=== PATIENT | male | born 1965 | race Hispanic/Latino ===

== ENCOUNTER 2024-03-22 17:23 | Emergency (ER) | payer BC ==
[~2024-03-22] VITALS: Ht 167.6 cm; Wt 64.9 kg
[~2024-03-22 17:23] MED LIST: ASPI-1443 PO; ATOR10 PO; ATRO2DRO7 OP; CIPR2.5D18 OS; CIPR7.5D7 OTIC; DOCU100C33 PO; EMPA10TA PO; FAMO20TA8 PO; INSU100V3 IJ; INSU3INS3 SQ; LACT10SO9 PO; LISI10TA24 PO; LOVA20TA3 PO; MAGN400T7 PO; METF-446 PO; NITR0.4T SL; PRED5DRO25 OP
--- NOTE | 2024-03-22 17:37 | EKG ---
[facility] Test Date: 2024-03-22 Test Time: 17:34:33 Pat Name: BUBBA LEMUS Department: ED Room: Gender: M Insurance Analyst: [id number] : 1965 Requested By: MK PENN Order Number: [id number] Reading MD: Hiren Briceño Measurements Intervals [place] Rate: 78 P: 21 MN: 148 QRS: -7 QRSD: 89 T: 38 QT: 399 QTc: 454 Interpretive Statements Sinus rhythm No previous ECG available for comparison Electronically Signed On 03-22-2024 20:19:34 BACTERIOLOGY RESEARCH ASSISTANT by Hiren Briceño Please click the below link to view image of tracing.
[2024-03-22 18:03] LABS: BASOPHILS # (AUTO) 0.01 K/uL (0.00-0.20); BASOPHILS % (AUTO) 0.2 % (0.0-5.0); HEMATOCRIT 22.7 % (42-54); IMMATURE GRANULOCYTE ABSOLUTE 0.07 K/uL (0-1); LYMPHOCYTES # (AUTO) 1.4 K/uL (1.0-4.8); LYMPHOCYTES % (AUTO) 27.1 % (21.0-51.0); MEAN CORPUSCULAR HEMOGLOBIN 29.4 pg (27.0-33.0); MEAN CORPUSCULAR HGB CONC 31.7 g/dL (32.0-36.0); MEAN CORPUSCULAR VOLUME 92.7 fL (79-99); MONOCYTES # (AUTO) 0.3 K/uL (0.1-1.0); MONOCYTES % (AUTO) 6.8 % (3.0-13.0); NEUTROPHILS # (AUTO) 3.1 K/uL (1.8-7.7); NEUTROPHILS % (AUTO) 62.5 % (40.0-77.0); PLATELET COUNT (AUTO) 354 K/uL (130-400); RED BLOOD CELL COUNT(AUTO) 2.45 MIL/uL (4.50-6.20); RED CELL DISTRIBUTION WIDTH 19.8 % (11.0-15.5)
[2024-03-22 18:12] LABS: CREATININE 0.7 mg/dL (0.5-1.3); POTASSIUM 3.8 mmol/L (3.5-5.1)
[2024-03-22 18:14] LABS: INR 0.95 (0.85-1.15); PROTHROMBIN TIME 10.7 SEC (9.6-11.6)
[2024-03-22 18:15] LABS: PARTIAL THROMBOPLASTIN TIME 28.6 SEC (26.3-35.5)
--- NOTE | 2024-03-22 19:17 | ERN ---
General Chief Complaint: Abnormal Labs Stated Complaint: LOW HGB 6.4 Time Seen by MD: 17:25 Time Seen by Midlevel: 17:25 Source: patient History of Present Illness Initial Comments Patient is a 58-year-old male with a past medical history of diabetes, osteomyelitis of the right foot, and chronic anemia presenting to the emergency department for evaluation of abnormal labs. Patient was seen by his primary care doctor earlier today for a routine follow up and was advised to report to the ER after he was found to have hemoglobin of 6.4. His labs had been drawn bag on March 10, 2024 and patient barely got the results today. On arrival patient is specifically denies any hematemesis, hematochezia, bright red stools, or any other symptoms at this time. Allergies: Coded Allergies: No Known Drug Allergies (Unverified Allergy, Unknown, 12/09/23) Home Meds Reported Medications Ciprofloxacin HCl (Ciprofloxacin HCl) 0.3 % Drops, 1 DROP OS Q12H, #5 ML 0 Refills 01/24/24 Ciprofloxacin HCl/Dexameth (Ciproflox-Dexameth Otic Susp) 0.3 %-0.1 % Drops.jamison sp, 1 DROP OTIC Q12H for 7 Days, #7.5 ML 0 Refills 01/23/24 Nitroglycerin (Nitrostat) 0.4 Mg Tab.subl, 0.4 MG SL AD PRN for CHEST PAIN, TAB.SL 01/23/24 Insulin Regular, Human (Humulin R) 100 Unit/Ml Vial, 0 IJ ACHS, VIAL 01/23/24 Lisinopril (Lisinopril) 10 Mg Tablet, 1 TAB PO DAILY for 30 Days, #30 TAB 0 Refills 01/23/24 Aspirin (Aspirin EC) 81 Mg Tablet.dr, 1 TAB PO DAILY for 30 Days, #30 TAB 0 Refills 01/23/24 Famotidine (Famotidine) 20 Mg Tablet, 1 TAB PO BID for 30 Days, #60 TAB 0 Refills 01/23/24 Insulin Glargine,Hum.rec.anlog (Lantus Solostar) 100 Unit/Ml (3 Ml) Insuln.pen, 25 UNIT SQ DAILY for 30 Days, ML 0 Refills 01/23/24 Magnesium Oxide (Mag-Ox) 400 Mg Tab, 1 TAB PO BID for 30 Days, #30 TAB 0 Refills 01/23/24 Atorvastatin Calcium (LIPITOR) 10 Mg Tab, 0.5 TAB PO HS for 30 Days, #30 TAB 0 Refills 01/23/24 Docusate Sodium (Docusate Sodium) 100 Mg Capsule, 1 CAP PO BID for constipation for 7 Days, #14 CAP 0 Refills 01/23/24 Lactulose (Lactulose) 20 Gram/30 Ml Solution, 20 GM PO DAILY, ML 01/23/24 Metformin HCl (Metformin HCl) 1,000 Mg Tablet, 1000 MG PO BID, TAB 12/10/23 Lovastatin (Lovastatin) 20 Mg Tablet, 20 MG PO DAILYDINNER, TAB 12/10/23 Empagliflozin (Jardiance) 10 Mg Tablet, 10 MG PO DAILY, TAB 12/10/23 Prednisolone Acetate/Pf (Prednisolone Acet 1% Eye Drop) 1 % Drops.susp, 5 ML OP BID for LEFT EYE, DROP 12/09/23 Atropine Sulfate (Atropine Sulfate) 1 % Drops, 2 ML OP BID for LEFT EYE, DROP 12/09/23 Past Medical History Past Medical History: Diabetes-Type II, High Cholesterol, Hypertension Medical History Other: LT EYE BLINDNESS Past Surgical History: None ROS Dictation CONSTITUTIONAL: Negative except for HPI HEAD/FACE: Negative except for HPI EENT: Negative except for HPI RESPIRATORY: Negative except for HPI GASTROINTESTINAL/ABDOMINAL: Negative except for HPI GENITOURINARY: Negative except for HPI MUSCULOSKELETAL: Negative except for HPI INTEGUMENTARY: Negative except for HPI NEUROLOGICAL/PSYCH: Negative except for HPI HEMATOLOGIC/LYMPHATIC: Negative except for HPI All Systems Negative, Except as noted above. 13 point review of systems assessed and all negative except for above. Physical Exam Physical Exam Dictation Vital Signs reviewed General Appearance: Alert, oriented x 3, no acute distress, well developed, nourished. Head and Face: non-traumatic. Eyes: PERRL, pink conjunctivas, eyelid no trauma, anterior chamber with arcus senilis. Ears: Pinnas intact and no signs of trauma or erythema ear canals clear and no discharge TM no erythema Nose: No discharge, no bleeding. Oropharynx: Mouth normal, tongue pink, pharynx clear,no erythema, tonsils no exudates, no abscesses noted, mucous membrane moist Neck: Supple, non-tender, no thyromegaly, no masses, no JVD, no bruits Breast:Deferred Chest:No tenderness, no crepitus, no paradoxical movement, no retractions Lungs:Clear, well-ventilated, symmetric, no rales, no wheezing, no rhonchi, no stridor, good breath sounds bilaterally Heart: Regular rate, regular rhythm, no murmur, no gallops Vascular: no peripheral edema, Abdomen: Soft, positive bowel sounds, nondistended, no guarding, nontender, no rebound, no masses no hepatomegaly, no splenomegaly, no Gallagher's sign, no hernias. Rectal: Deferred Genital: Deferred Neurological: Normal speech, motor function intact, sensory function intact Musculoskeletal: Neck nontender, full range of motion, back nontender, full range of motion, Extremities: nontender, full range of motion Skin: Color pink, dry, no turgor, no rash, no lacerations, no abrasions, no contusions. Lymphatic: Deferred Results Laboratory and Microbiology Lab and Micro Result Laboratory Tests Test 03/22/24 17:55 White Blood Count 5.0 K/uL (4.8-10.8) Red Blood Count 2.45 MIL/uL (4.50-6.20) L Hemoglobin 7.2 g/dL (14.0-18.0) L Hematocrit 22.7 % (42-54) L Mean Corpuscular Volume 92.7 fL (79-99) Mean Corpuscular Hemoglobin 29.4 pg (27.0-33.0) Mean Corpuscular Hemoglobin Concent 31.7 g/dL (32.0-36.0) L Red Cell Distribution Width 19.8 % (11.0-15.5) H Platelet Count 354 K/uL (130-400) Mean Platelet Volume 8.8 fL (7.5-10.5) Immature Granulocyte % (Auto) 1.4 % (0-1) H Neutrophils (%) (Auto) 62.5 % (40.0-77.0) Lymphocytes (%) (Auto) 27.1 % (21.0-51.0) Monocytes (%) (Auto) 6.8 % (3.0-13.0) Eosinophils (%) (Auto) 2.0 % (0.0-8.0) Basophils (%) (Auto) 0.2 % (0.0-5.0) Neutrophils # (Auto) 3.1 K/uL (1.8-7.7) Lymphocytes # (Auto) 1.4 K/uL (1.0-4.8) Monocytes # (Auto) 0.3 K/uL (0.1-1.0) Eosinophils # (Auto) 0.10 K/uL (0.00-0.70) Basophils # (Auto) 0.01 K/uL (0.00-0.20) Absolute Immature Granulocyte (auto 0.07 K/uL (0-1) Nucleated Red Blood Cells 0.0 % (0.0-0.19) Red Blood Cell Morphology See comments Prothrombin Time 10.7 SEC (9.6-11.6) Prothromb Time International Ratio 0.95 (0.85-1.15) Activated Partial Thromboplast Time 28.6 SEC (26.3-35.5) Sodium Level 136 mmol/L (136-145) Potassium Level 3.8 mmol/L (3.5-5.1) Chloride Level 103 mmol/L (101-111) Carbon Dioxide Level 27 mmol/L (21-32) Blood Urea Nitrogen 27 mg/dL (7-18) H Creatinine 0.7 mg/dL (0.5-1.3) Glomerular Filtration Rate Calc 107 mL/min (>90) Random Glucose 252 mg/dL (70-105) H Total Calcium 8.2 mg/dL (8.5-10.1) L Troponin I High Sensitivity < 4 ng/L (4-75) L Labs Reviewed?: Yes MDM MDM: Patient is a 58-year-old male with a past medical history of diabetes, osteomyelitis of the right foot, and chronic anemia presenting to the emergency department for evaluation of abnormal labs. Patient was seen by his primary care doctor earlier today for a routine follow up and was advised to report to the ER after he was found to have hemoglobin of 6.4. His labs had been drawn back on March 10, 2024 and patient barely got the results today. On arrival patient is specifically denies any hematemesis, hematochezia, bright red stools, or any other symptoms at this time. On physical examination patient is in no acute distress. His repeat hemoglobin today was 7.2. The remainder of his exam labs are stable. Patient does not want to be admitted stating that he has been in and out of the hospital for the last four months. He states he can see his primary care doctor tomorrow as a walk-in and will be following up outpatient. Patient's vital signs are stable. He specifically denies having any black tarry stools, hematemesis, or bright red blood in his stools. Denies any active bleeding at this time. Patient would not like to be admitted to the hospital at this time. Patient will be discharged home with outpatient management. Differential diagnosis: Chronic anemia, GI bleed, There are no social concerns with this patient. Prescription drug management Prescriptions will include: None Medical management and examination interpretation discussions were had by me with other qualified healthcare professionals as indicated for the patient's care. ED Course Orders Procedure Category Date Status Time 12 Lead Ekg Tracing- EKG 03/22/24 Complete Technical 17:25 Cbc With Differential LAB 03/22/24 Complete 17:25 Basic Metabolic Panel LAB 03/22/24 Complete 17:25 Type And Screen BBK 03/22/24 In Process 17:25 Pt And Ptt LAB 03/22/24 Complete 17:25 Troponin I High LAB 03/22/24 Complete Sensitivity 17:25 Vital Signs Date Time Temp Pulse Resp B/P (MAP) Pulse Ox O2 Delivery O2 Flow Rate FiO2 03/22/24 17:24 97.9 80 20 118/70 97 Room Air 0 DX & DISP Disposition: Discharge Departure Impression: Primary Impression: Chronic anemia Condition: Stable Additional Instructions: Your hemoglobin today is 7.2. Given that you are not actively bleeding there was no need for an emergent blood transfusion. You will need to follow up with your primary care doctor and potentially be referred for Hematology for outpatient evaluation. Return to the emergency department for any new or worsening symptoms. Referrals: PEDRO BACA (PCP) Time of Disposition: 19:15 I have reviewed the case, and I agree with, Diagnosis and Plan I performed the substantive portion of the visit. I have reviewed and personally made and approve the management plan that is documented in the note by myself or the LEXY. I acknowledge for responsibility for the patient's management plan. MK PENN Mar 22, 2024 19:16
[2024-03-22 20:28] VITALS: BP 131/76; PULSE 82; RESP 20; TEMP 97.4; O2SAT 99
== END 2024-03-22 20:27 | disposition home or self-care (01) ==
LOC: EDH 17:23
DX: D64.9 Anemia, unspecified (principal); E11.69 Type 2 diabetes mellitus with other specified complication; E78.00 Pure hypercholesterolemia, unspecified; I10 Essential (primary) hypertension; Z79.4 Long term (current) use of insulin; Z79.82 Long term (current) use of aspirin; Z79.84 Long term (current) use of oral hypoglycemic drugs; Z79.899 Other long term (current) drug therapy
CPT/HCPCS: 36415; 80048; 84484; 85025; 85610; 85730; 86850; 86900; 86901; 93005; 99284